=== PATIENT | female | born 1955 | race Caucasian/White ===

== ENCOUNTER 2020-08-23 16:59 | Outpatient (CLI) | payer OTHER, SELFPAY ==
[2020-08-23 18:12] LABS: Influenza A QL RT-PCR Negative (Negative); Influenza B QL RT-PCR Negative (Negative); SARS-CoV-2 RNA PCR Positive (Negative)
== END 2020-08-23 17:00 | disposition home or self-care (01) ==
PROVIDERS: PCP Internal Medicine
DX: U07.1 COVID-19 (principal)
CPT/HCPCS: 87502; C9803; U0003; U0005